=== PATIENT | male | born 1945 | race Hispanic/Latino ===

== ENCOUNTER 2025-01-11 21:17 | Emergency (ER) | payer MEDICARE ==
[~2025-01-11] VITALS: Ht 175.3 cm; Wt 78.9 kg
[2025-01-11 22:00] LABS: BASOPHILS # (AUTO) 0.1 (0.0-0.1); BASOPHILS % 0.6 % (0.0-1.0); EOSINOPHILS # (AUTO) 0.1 (0.0-0.4); HEMATOCRIT 46.5 % (38.2-49.6); HEMOGLOBIN 16.2 g/dL (14.0-18.0); LYMPHOCYTES # (AUTO) 1.3 (1.0-3.2); LYMPHOCYTES % 15.6 % (18.0-39.1); MEAN CORPUSCULAR HEMOGLOBIN 31.4 pg (28-32); MEAN CORPUSCULAR HGB CONC 34.8 g/dL (31-35); MEAN CORPUSCULAR VOLUME 90.1 fL (81-99); MONOCYTES # (AUTO) 0.5 (0.2-0.8); MONOCYTES % 5.9 % (4.4-11.3); NEUTROPHILS # (AUTO) 6.6 (2.1-6.9); NEUTROPHILS % 76.2 % (38.7-80.0); PLATELET COUNT 206 x10e3/uL (140-360); RED BLOOD COUNT 5.16 x10e6/uL (4.3-5.7); RED CELL DISTRIBUTION WIDTH 13.4 % (11.7-14.4); WHITE BLOOD COUNT 8.61 x10e3/uL (4.8-10.8)
[2025-01-11 22:04] LABS: INR 0.93; PARTIAL THROMBOPLASTIN TIME 26.2 seconds (23.8-35.5); PROTHROMBIN TIME 13.3 seconds (11.9-14.5)
[2025-01-11 22:20] LABS: ALBUMIN 4.7 g/dL (3.5-5.0); ALBUMIN/GLOBULIN RATIO 1.5 (0.8-2.0); ANION GAP 23.8 mmol/L (8-16); BILIRUBIN,TOTAL 1.7 mg/dL (0.2-1.2); CALCIUM 10.2 mg/dL (8.4-10.2); CREATININE, SERUM 1.5 mg/dL (0.72-1.25); TOTAL PROTEIN 7.8 g/dL (6.5-8.1)
[2025-01-11 22:34] LABS: POTASSIUM 2.8 mmol/L (3.5-5.1)
[2025-01-11] MEDS ORDERED: SODIUM CHLORIDE 0.9% 100 ML ONE (22:38)
[2025-01-11] MEDS ORDERED: IOPAMIDOL 370 MG/ML 100 ML INFUS..BTL INJ ONE (22:38)
[2025-01-11 23:00] VITALS: TEMP 98.7
[2025-01-11 23:30] VITALS: PULSE 77; RESP 15
[2025-01-12 00:17] VITALS: BP 147/93; PULSE 84; RESP 18; O2SAT 98
== END 2025-01-12 00:10 | disposition other institution (70) ==
LOC: ER 21:39
DX: R41.0 Disorientation, unspecified (principal); I62.00 Nontraumatic subdural hemorrhage, unspecified; R53.1 Weakness; Z91.81 History of falling; R94.31 Abnormal electrocardiogram [ECG] [EKG]
CPT/HCPCS: 36415; 70496; 70498; 71045; 80053; 82140; 84484; 85025; 85610; 85730; 93005; 99284; J7050; Q9967